=== PATIENT | male | born 1995 | race African-American/Black ===

== ENCOUNTER 2018-02-12 17:17 | Emergency (ER) | payer OTHER ==
[2018-02-12] MEDS: AZITHROMYCIN 250 MG TAB PO (18:15)
== END 2018-02-12 18:43 | disposition home or self-care (01) ==
LOC: M ED 17:17
DX: Z20.2 Contact with and (suspected) exposure to infections with a predominantly sexual mode of transmission (principal); L73.9 Follicular disorder, unspecified
CPT/HCPCS: 99282